=== PATIENT | male | born 1955 ===

== ENCOUNTER → 2019-11-16 | Outpatient (CLI) | payer OTHER ==
--- NOTE | 2019-11-16 14:04 | KCIC ---
STUDY: MRI of the right elbow without contrast INDICATION: Acute injury to the right elbow. Pain and swelling. COMPARISON: None. TECHNIQUE: Multiplanar MR imaging of the right elbow performed without the use of intravenous or intra-articular contrast. FINDINGS: Bones/cartilage: No acute fracture. Degenerative subchondral edema/cystic change involving the trochlea more so than the capitellum in the setting of scattered chondrosis. Small olecranon process enthesophyte. Musculotendinous: Partial tear of the biceps brachii approaching/at its insertion on the radial tuberosity which appears to be intermediate grade. Small volume fluid/hemorrhage within the bicipitoradial bursa and tracking edema within the antecubital fossa. Tendinosis and a very low-grade chronic tear at the common extensor origin, image 21 series 8. No advanced tendinosis or focal tear at the common flexor origin. The triceps is intact. Ligaments: Intact radial and ulnar collateral ligaments. Intact lateral ulnar collateral ligament. Intact annular ligament. Nerves: Normal signal and morphology of the ulnar nerve. Miscellaneous: Small elbow joint effusion. Scattered subcutaneous edema mainly along the ulnar aspect of the elbow. IMPRESSION: 1. Partial tear of the biceps brachii approaching/at its insertion favored intermediate grade. No lax or retracted tendon fibers are identified. Corresponding small volume fluid/hemorrhage within the bicipitoradial bursa and scattered subcutaneous edema. 2. Mild tendinosis and a very low grade chronic partial tear at the common extensor origin. 3. Small elbow joint effusion in the setting of scattered chondrosis and trochlear more so than capitellar subchondral edema/cystic change. Electronically signed by: ELIS MENDEZ MD (11/16/2019 2:01 PM) [id number]
== END ==
LOC: KCIC MRI 08:05
PROVIDERS: ATTEND Family Medicine
DX: S46.211A Strain of muscle, fascia and tendon of other parts of biceps, right arm, initial encounter (principal); M25.421 Effusion, right elbow; M77.9 Enthesopathy, unspecified; X58.XXXA Exposure to other specified factors, initial encounter; Y93.89 Activity, other specified; Y92.89 Other specified places as the place of occurrence of the external cause; Y99.8 Other external cause status
CPT/HCPCS: 73221